=== PATIENT | male | born 1930 | race Caucasian/White ===

== ENCOUNTER 2017-01-24 04:52 | Inpatient (IN) | payer MEDICARE, OTHER ==
[~2017-01-24] VITALS: Ht 177.8 cm; Wt 81.7 kg
[2017-01-24] MEDS ORDERED: MORPHINE SULFATE 4 MG/ML, 1ML ONE ×2 (05:19→05:32)
[2017-01-24] MEDS ORDERED: ONDANSETRON 2MG/ML, 2ML ONE (05:19)
[2017-01-24] MEDS: MORPHINE SULFATE 4 MG/ML, 1ML IVPush PRN ×2 (05:22→05:36)
[2017-01-24] MEDS ORDERED: SODIUM CHLORIDE FLUSH 10ML SYR IVF ONE (05:30)
[2017-01-24] MEDS ORDERED: ONDANSETRON 2MG/ML, 2ML IVPush ONE (05:30)
[2017-01-24] MEDS ORDERED: TAMS-11 PO (05:31)
[2017-01-24] MEDS ORDERED: [UNRECOGNIZED DRUG - REMARK] (05:31)
[2017-01-24] MEDS ORDERED: [UNRECOGNIZED DRUG - REMARK] (05:31)
[2017-01-24] MEDS ORDERED: BENZAPRIL PO (05:31)
[2017-01-24] MEDS ORDERED: HYDROmorphone 1 MG/ML, 1ML ONE ×4 (06:00→08:19)
[2017-01-24] MEDS ORDERED: DIAZEPAM 5 MG/ML, 2ML ONE (06:00)
[2017-01-24 06:07] LABS: IS PT STATUS REG ER OR PRE ER? YES
[2017-01-24] MEDS ORDERED: DIAZEPAM 5 MG/ML, 2ML IV ONE (06:30)
[2017-01-24] MEDS ORDERED: HYDROmorphone 1 MG/ML, 1ML IV ONE ×2 (06:30→07:30)
[2017-01-24] MEDS: HYDROmorphone 1 MG/ML, 1ML IV PRN ×4 (08:02→17:51)
[2017-01-24 08:55] LABS: BLOOD UREA NITROGEN 38 mg/dL (7-18)
[2017-01-24] MEDS ORDERED: ONDANSETRON 2MG/ML, 2ML IVP PRN (12:00)
[2017-01-24] MEDS ORDERED: ACETAMINOPHEN 325 MG TABLET PO PRN (12:00)
[2017-01-24] MEDS ORDERED: HYDROmorphone 2 MG/ML, 1ML IV PRN (12:00)
[2017-01-24] MEDS ORDERED: POLYETHYLENE GLYCOL 17 GM PACKET PO PRN (12:00)
[2017-01-24] MEDS ORDERED: DOCUSATE 100 MG CAPSULE PO PRN (12:00)
[2017-01-24] MEDS ORDERED: ONDANSETRON ODT 4 MG PO PRN (12:00)
[2017-01-24] MEDS ORDERED: ENALAPRILAT 1.25 MG/ML, 2ML IVPush PRN (12:00)
[2017-01-24] MEDS ORDERED: BISACODYL 10 MG SUPP PR PRN (12:00)
[2017-01-24] MEDS: SODIUM CHLORIDE 0.9% 1,000 ML IV SCH (12:03)
[2017-01-24 12:34] LABS: BLOOD UREA NITROGEN 33 mg/dL (7-18)
[2017-01-24 12:36] LABS: ASPARTATE AMINO TRANSFERASE 20 U/L (15-37)
[2017-01-24] MEDS ORDERED: GADOBUTROL 10 MMOL/10 ML PFS ONE (13:27)
[2017-01-24 14:38] VITALS: BP 149/77
[2017-01-24 18:25] LABS: CYTOLOGY BODY FLUID RECD INTO PATHOLOGY; CYTOLOGY BODY FLUID SOURCE SYNOVIAL FLUID
[2017-01-24 20:14] VITALS: BP 119/65
[2017-01-25] MEDS: SODIUM CHLORIDE 0.9% 1,000 ML IV SCH (00:55)
[2017-01-25 03:38] VITALS: BP 146/75
[2017-01-25 05:55] LABS: HEMOGLOBIN 8.8 g/dL (13.7-18.0)
[2017-01-25 06:10] LABS: ASPARTATE AMINO TRANSFERASE 21 U/L (15-37); BLOOD UREA NITROGEN 26 mg/dL (7-18)
[2017-01-25 06:26] LABS: ANISOCYTOSIS 1+; MICROCYTOSIS 1+; OVALOCYTES 1+
[2017-01-25 07:41] VITALS: BP 162/79
[2017-01-25] MEDS ORDERED: BENAZEPRIL 10 MG TABLET PO SCH (09:00)
[2017-01-25] MEDS ORDERED: TAMSULOSIN 0.4 MG CAP.ER.24H PO SCH (09:00)
[2017-01-25] MEDS ORDERED: OXYC5TAB3 PO (10:49)
[2017-01-25] MEDS ORDERED: FERR220S2 PO (10:49)
[2017-01-25 12:44] VITALS: BP 159/74
== END 2017-01-25 13:37 | disposition home or self-care (01) | DRG 554 ==
LOC: ED 06:27 → EDIP 10:07 → 4NOR 11:42 → DCLOUNGE 01-25 12:58
PROVIDERS: ADMIT Internal Medicine; ATTEND Internal Medicine
PROC: 0R9J3ZZ Drainage of Right Shoulder Joint, Percutaneous Approach (ICD-10-PCS; principal; 2017-01-24)
DX: M25.011 Hemarthrosis, right shoulder (principal); D61.818 Other pancytopenia; D68.9 Coagulation defect, unspecified; J98.11 Atelectasis; C85.10 Unspecified B-cell lymphoma, unspecified site; E87.1 Hypo-osmolality and hyponatremia; E78.5 Hyperlipidemia, unspecified; G89.29 Other chronic pain; K21.9 Gastro-esophageal reflux disease without esophagitis; Z66 Do not resuscitate; D50.9 Iron deficiency anemia, unspecified; I11.9 Hypertensive heart disease without heart failure; H93.19 Tinnitus, unspecified ear; R73.9 Hyperglycemia, unspecified; M19.90 Unspecified osteoarthritis, unspecified site; Z96.653 Presence of artificial knee joint, bilateral; M65.9 Synovitis and tenosynovitis, unspecified; M94.20 Chondromalacia, unspecified site; N40.0 Benign prostatic hyperplasia without lower urinary tract symptoms; Z85.47 Personal history of malignant neoplasm of testis; Z87.891 Personal history of nicotine dependence; Z92.21 Personal history of antineoplastic chemotherapy; Z92.3 Personal history of irradiation; Z82.49 Family history of ischemic heart disease and other diseases of the circulatory system
CPT/HCPCS: 36415; 71010; 80048; 80053; 82607; 82728; 83540; 83550; 83880; 84484; 85025; 85610; 87070; 87205; 88112; 88305; 89051; 89060; 93005; 96374; 96375; 96376; A9585; J1170; J2405; J3360; Q0162; J7030

== ENCOUNTER 2017-02-02 03:13 | Observation (INO) | payer MEDICARE, OTHER ==
[~2017-02-02] VITALS: Ht 177.8 cm; Wt 79.9 kg
[~2017-02-02 03:13] MED LIST: BENZAPRIL PO; FERR220S2 PO; OXYC5TAB3 PO; TAMS-11 PO; [UNRECOGNIZED DRUG - REMARK]; [UNRECOGNIZED DRUG - REMARK]
[2017-02-02] MEDS ORDERED: SODIUM CHLORIDE 0.9% 1,000 ML IV ONE (03:23)
[2017-02-02] MEDS ORDERED: ONDANSETRON 2MG/ML, 2ML IVPush ONE (03:30)
[2017-02-02] MEDS: ASPIRIN 81 MG TABLET CHEW PO ONE ×2 (03:30→03:43)
[2017-02-02] MEDS ORDERED: SODIUM CHLORIDE FLUSH 10ML SYR IVF ONE (03:30)
[2017-02-02] MEDS ORDERED: MORPHINE SULFATE 4 MG/ML, 1ML IVPush PRN (03:30)
[2017-02-02] MEDS ORDERED: NITROGLYCERIN SINGLE TAB 0.4 MG SL ONE ×2 (03:41→03:54)
[2017-02-02] MEDS ORDERED: ASPIRIN 81 MG TABLET CHEW ONE (03:41)
[2017-02-02] MEDS: NITROGLYCERIN SINGLE TAB 0.4 MG SL PRN ×2 (03:43→05:16)
[2017-02-02 03:54] LABS: HEMOGLOBIN 8.8 g/dL (13.7-18.0)
[2017-02-02] MEDS ORDERED: DICL50TA2 PO (04:00)
[2017-02-02] MEDS ORDERED: BENA20TA2 PO (04:00)
[2017-02-02] MEDS ORDERED: LANS30CA PO (04:00)
[2017-02-02] MEDS ORDERED: ROSU10TA PO (04:00)
[2017-02-02 04:08] LABS: ASPARTATE AMINO TRANSFERASE 20 U/L (15-37); BLOOD UREA NITROGEN 42 mg/dL (7-18)
[2017-02-02 04:12] LABS: ANISOCYTOSIS 1+; HYPOCHROMIA 1+; OVALOCYTES 1+; POIKILOCYTOSIS 1+; POLYCHROMASIA 1+; SCHISTOCYTES 1+
[2017-02-02 04:13] LABS: MICROCYTOSIS 2+
[2017-02-02 04:14] LABS: IS PT STATUS REG ER OR PRE ER? YES
[2017-02-02] MEDS ORDERED: ENOXAPARIN 40 MG/0.4 ML ONE (04:53)
[2017-02-02] MEDS ORDERED: DOCUSATE 100 MG CAPSULE PO PRN (05:00)
[2017-02-02] MEDS ORDERED: ATORVASTATIN 80 MG TABLET PO SCH (05:00)
[2017-02-02] MEDS ORDERED: LABETALOL 5MG/ML, 20ML IV PRN (05:00)
[2017-02-02] MEDS ORDERED: ENOXAPARIN 40 MG/0.4 ML SQ SCH (05:00)
[2017-02-02] MEDS ORDERED: TRAZODONE 50MG TABLET PO PRN (05:00)
[2017-02-02] MEDS ORDERED: ONDANSETRON ODT 4 MG PO PRN (05:00)
[2017-02-02] MEDS ORDERED: POLYETHYLENE GLYCOL 17 GM PACKET PO PRN (05:00)
[2017-02-02] MEDS ORDERED: ACETAMINOPHEN 325 MG TABLET PO PRN (05:00)
[2017-02-02] MEDS ORDERED: BISACODYL 10 MG SUPP PR PRN (05:00)
[2017-02-02 07:58] VITALS: BP 144/54
[2017-02-02] MEDS ORDERED: TAMSULOSIN 0.4 MG CAP.ER.24H PO SCH (09:00)
[2017-02-02] MEDS ORDERED: BENAZEPRIL 10 MG TABLET PO SCH (09:00)
[2017-02-02] MEDS ORDERED: PANTOPROZOLE 40MG TABLET PO SCH (09:00)
[2017-02-02] MEDS ORDERED: ASPIRIN 81 MG TABLET CHEW PO SCH (09:00)
[2017-02-02] MEDS ORDERED: DICLOFENAC 50 MG TABLET.DR PO SCH (09:00)
[2017-02-02 11:06] LABS: IS PT STATUS REG ER OR PRE ER? NO
[2017-02-02] MEDS ORDERED: REGADENOSON 0.4 MG/5 ML SYRINGE ONE (11:36)
[2017-02-02 13:50] VITALS: BP 169/79
[2017-02-02 16:30] LABS: IS PT STATUS REG ER OR PRE ER? NO
== END 2017-02-02 19:32 | disposition home or self-care (01) ==
LOC: ED 04:38 → EDIP 04:41 → INTOOBSV 04:41 → 5SO 07:49
PROVIDERS: ADMIT Internal Medicine; ATTEND Internal Medicine
DX: R07.89 Other chest pain (principal); N40.0 Benign prostatic hyperplasia without lower urinary tract symptoms; E78.5 Hyperlipidemia, unspecified; I10 Essential (primary) hypertension; K21.9 Gastro-esophageal reflux disease without esophagitis; D53.9 Nutritional anemia, unspecified; D61.818 Other pancytopenia; Z87.891 Personal history of nicotine dependence
CPT/HCPCS: 36415; 71010; 78452; 80053; 82607; 82746; 83880; 84484; 85025; 85610; 85730; 93005; 93017; 96360; 96361; 96372; 99285; A9502; C9898; G0378; J1650; J2785; J7030

== ENCOUNTER 2017-02-28 14:58 | Emergency (ER) | payer MEDICARE, OTHER ==
[~2017-02-28] VITALS: Ht 177.8 cm; Wt 83.5 kg
[~2017-02-28 14:58] MED LIST changes: +BENA20TA2 PO; +DICL50TA2 PO; +LANS30CA PO; +ROSU10TA PO
[2017-02-28 15:05] VITALS: BP 119/64
[2017-02-28] MEDS ORDERED: BACITRACIN ZINC OINT 500U/GM, 0.9 GM ONE (15:53)
== END 2017-02-28 15:55 | disposition home or self-care (01) ==
LOC: ED 15:49
DX: S80.811A Abrasion, right lower leg, initial encounter (principal); I10 Essential (primary) hypertension; X58.XXXA Exposure to other specified factors, initial encounter; Y93.89 Activity, other specified; Y92.009 Unspecified place in unspecified non-institutional (private) residence as the place of occurrence of the external cause; Y99.9 Unspecified external cause status
CPT/HCPCS: 99283